=== PATIENT | female | born 1950 | race Caucasian/White ===

== ENCOUNTER 2023-07-08 07:30 | Inpatient (IN) | payer OTHER ==
[~2023-07-08] VITALS: Ht 160 cm; Wt 79.9 kg
[~2023-07-08 07:30] MED LIST: ALEN35TA18 PO; ASPI-378 OR; CHOL100055 PO; LEVO88TA4 PO; LOVA10TA2 PO
[2023-07-08] MEDS: TRANEXAMIC ACID 20 ML ONE (08:18)
[2023-07-08] MEDS ORDERED: fentaNYL CITRATE 100 MCG/2 ML VL ONE (08:35)
[2023-07-08] MEDS ORDERED: MIDAZOLAM HCL 2MG/2ML 2ml VIAL (1mg/ml) ONE (08:36)
[2023-07-08] MEDS ORDERED: PROPOFOL 10 MG/ML 20 ML IV ONE (08:38)
[2023-07-08] MEDS: ceFAZolin 2 GM/D5W50ml 50 ML IV ONE (10:08)
[2023-07-08] MEDS ORDERED: ePHEDrine SULFATE 50 MG/ML AMP ONE (10:37)
[2023-07-08] MEDS: EPINEPHrine HCL 1 MG/1 ML AMP ONE (10:43)
[2023-07-08] MEDS: VANCOMYCIN HCL 1000 MG VL ONE ×2 (11:06→11:26)
[2023-07-08] MEDS ORDERED: oxyCODONE HCL 5MG TAB PO PRN (11:30)
[2023-07-08] MEDS: ROPIVACAINE 0.5% (5MG/ML) 20ML AMPULE IJ ONE (11:44)
[2023-07-08] MEDS ORDERED: ONDANSETRON HCL 4 MG/2 ML VIAL IV PRN ×2 (12:00→12:45)
[2023-07-08] MEDS ORDERED: PHENYLEPHRINE HCL 10 MG/ML VL ONE (12:01)
[2023-07-08] MEDS ORDERED: HYDROmorphone HCL 2 MG/ML VL/or syr IV PRN (12:45)
[2023-07-08] MEDS: SODIUM CHLORIDE 0.9% 1,000 ML IV SCH (14:00)
[2023-07-08] MEDS: ceFAZolin 2 GM/D5W50ml 50 ML IV SCH (14:26)
[2023-07-08 14:59] VITALS: BP 132/71; PULSE 103; PULSE 80; RESP 13; RESP 18; TEMP 97.5; O2SAT 95
[2023-07-08] MEDS: ACETAMINOPHEN 325 MG TAB PO SCH (16:00)
[2023-07-08] MEDS: KETOROLAC TROMETH 30 MG/ML 1ML VIAL IV SCH (16:00)
[2023-07-08] MEDS: oxyCODONE HCL 5MG TAB PO PRN (16:04)
[2023-07-08 22:00] VITALS: BP 99/54; PULSE 99; RESP 16; TEMP 97.6; O2SAT 94
[2023-07-08] MEDS: ATORVASTATIN 20 MG TAB PO SCH (22:07)
[2023-07-08] MEDS: PREGABALIN 25 MG CAP PO SCH (22:07)
[2023-07-09 05:00] VITALS: BP 96/50; PULSE 100; RESP 17; TEMP 97.8; O2SAT 96
[2023-07-09 06:17] LABS: Basophils # (auto) 0 10 ^3/uL (0-0.2); Eosinophils # (auto) 0.1 10 ^3/uL (0-0.8); Hemoglobin 10.1 g/dL (12.2-16.2); Monocytes # (auto) 0.7 10 ^3/uL (0-1.3); White Blood Cell 4.5 10^3/uL (4.4-10.8)
[2023-07-09 06:19] LABS: Basophils % (auto) 0.5 % (0.0-2.0); Eosinophils % (auto) 1.3 % (0.0-7.0); Hematocrit 31.1 % (36.0-46.0); Lymphocytes # (auto) 0.7 10 ^3/uL (0.4-5.4); Lymphocytes % (auto) 16.7 % (10.0-50.0); Mean Corpuscular Hemoglobin 26.6 pg (28.0-32.0); Mean Corpuscular Hgb Conc. 32.4 g/dL (32.0-36.0); Mean Corpuscular Volume 82.1 fL (80.0-100.0); Monocytes % (auto) 16.5 % (0.0-12.0); Neutrophils # (auto) 2.9 10 ^3/uL (1.6-8.6); Red Blood Cells 3.79 10^6/uL (4.0-5.20); Red Cell Distribution Width 15.1 % (11.8-14.3)
[2023-07-09 06:28] LABS: Calcium 8.3 mg/dL (8.5-10.1); Chloride 112 mmol/L (98-107); Potassium 4.1 mmol/L (3.5-5.1); Sodium 140 mmol/L (136-145)
[2023-07-09 06:29] LABS: Anion Gap 5 (5-15); Carbon Dioxide 23 mmol/L (20-30)
[2023-07-09 06:34] LABS: BUN/Creatinine Ratio 9.5 (10.0-20.0); Blood Urea Nitrogen 6 mg/dL (9-23); Glucose 108 mg/dL (74-106)
[2023-07-09 09:00] VITALS: BP 111/57; PULSE 92; RESP 17; TEMP 98.2; O2SAT 96
[2023-07-09] MEDS: LEVOTHYROXINE SODIUM 88 MCG TAB PO SCH (10:56)
[2023-07-09] MEDS: APIXABAN 2.5 MG TAB PO SCH (10:56)
[2023-07-09 13:00] VITALS: BP 131/77; PULSE 106; RESP 17; TEMP 97.3; O2SAT 98
[2023-07-09 16:20] VITALS: BP 111/57; PULSE 92; RESP 17; TEMP 98.2; O2SAT 96
[2023-07-09 17:00] VITALS: BP 152/89; PULSE 118; RESP 19; TEMP 98; O2SAT 97
== END 2023-07-09 18:35 | disposition home or self-care (01) | DRG 470 ==
LOC: SUR 07:30 → OVERFLOW 11:57 → EAST 14:56
PROVIDERS: ADMIT Orthopaedic Surgery; ATTEND Orthopaedic Surgery
PROC: 0SRB0JZ Replacement of Left Hip Joint with Synthetic Substitute, Open Approach (ICD-10-PCS; principal; 2023-07-08 10:08)
DX: M16.12 Unilateral primary osteoarthritis, left hip (principal); E03.9 Hypothyroidism, unspecified; E78.5 Hyperlipidemia, unspecified; Z88.0 Allergy status to penicillin; Z88.8 Allergy status to other drugs, medicaments and biological substances; Z79.82 Long term (current) use of aspirin; Z79.899 Other long term (current) drug therapy
CPT/HCPCS: 36415; 72170; 73501; 80048; 85025; 86850; 86900; 86901; 97110; 97116; 97163; 97530; G0378; J0171; J1885; J2250; J2704